=== PATIENT | female | born 1990 | race Caucasian/White ===

== ENCOUNTER 2020-06-18 09:41 | Emergency (ER) | payer OTHER ==
[~2020-06-18] VITALS: Ht 157.5 cm; Wt 64.0 kg
[2020-06-18 09:52] VITALS: Ht 157.5 cm; Wt 64.0 kg
[2020-06-18 12:17] VITALS: BP 135/84
== END 2020-06-18 12:17 | disposition home or self-care (01) ==
LOC: ED 09:41
DX: J02.9 Acute pharyngitis, unspecified (principal)